=== PATIENT | female | born 1985 | race Hispanic/Latino ===

== ENCOUNTER 2020-09-16 10:09 | Outpatient (CLI) | payer OTHER ==
[2020-09-17 12:00] LABS: SARS-CoV-2 MS2 Positive; SARS-CoV-2 N Gene Negative; SARS-CoV-2 S Gene Negative; SARS-CoV-2 by NAA Not Detected (NotDetected); SARS-CoV-2 orf1ab Negative
== END 2020-09-16 10:10 | disposition home or self-care (01) ==
LOC: LABBT 10:09
PROVIDERS: ATTEND Obstetrics & Gynecology
DX: Z20.828 Contact with and (suspected) exposure to other viral communicable diseases (principal)
CPT/HCPCS: 87635; U0003

== ENCOUNTER 2020-09-19 05:30 | Inpatient (IN) | payer OTHER ==
[~2020-09-19 05:30] MED LIST: Acetaminophen 500 MG TAB PO PRN; Butorphanol Tartrate 1 MG/ML VIAL SLOW IVP PRN; Carboprost 250 MCG/ML AMP IM PRN; Diphenoxylate HCl/Atropine Tablet PO PRN; HYDROcodone/Acetaminophen 5/325 mg Tablet PO PRN; Ibuprofen 800 MG TAB PO PRN; Lidocaine 1% (PF) 30 ML VIAL SC PRN; Methylergonovine 0.2 MG/ML VIAL IM PRN; Misoprostol 200 MCG TAB PR PRN; Ondansetron PF 4 MG/2 ML Vial IVP PRN; Promethazine HCl 25 MG/ML VIAL IM PRN; hydrALAZINE 20 MG/ML VIAL SLOW IVP PRN
[2020-09-22] MEDS: Lactated Ringer's 1,000 ML IV SCH ×2 (07:22→11:08)
[2020-09-22 07:45] VITALS: BMI 28.5
[2020-09-22] MEDS ORDERED: FLU VACC QS2020-21(6MOS UP)/PF 60 MCG/0.5 ML SYRINGE IM ONE (08:00)
[2020-09-22 08:05] LABS: Hemoglobin 13.4 g/dL (12.0-16.0); Mean Corpuscular HGB CONC 35.3 g/dL (32.0-36.0); Mean Corpuscular Volume 87.9 fL (78.0-98.0); Mean Platelet Volume 9.9 fL (7.4-10.4); Platelet Count 148 thou/uL (130-400); RBC Distribution Width 13.2 % (11.5-14.5); Red Blood Cell (RBC) Count 4.33 mill/uL (4.20-5.40); White Blood Cell (WBC) Count 9.2 thou/uL (4.8-10.8)
[2020-09-22 09:20] LABS: HBSAg Index 0.36 S/CO (0-0.99); Hep B Surf Ag Non-Reactive S/CO (NonReactive)
[2020-09-22] MEDS: NS w/ Oxytocin 10 units 500 ML IV SCH (09:37)
[2020-09-22 10:55] LABS: Syphilis Antibody Nonreactive (Nonreactive); Syphilis Antibody Index 0.04 S/CO (<1.00 Non-Reactive)
[2020-09-22] MEDS ORDERED: NS / Oxytocin 40 units/1000ml 1,000 ML ONE (13:12)
[2020-09-22] MEDS ORDERED: Lidocaine 1% (PF) 30 ML VIAL ONE (13:12)
[2020-09-22] MEDS: NS / Oxytocin 40 units/1000ml 1,000 ML IV PRN ×2 (16:12→17:29)
--- NOTE | 2020-09-22 16:27 | PDOC.OPDEL ---
OB Operative/Delivery Note Delivery Dr/Surgeon: Oanh Pre-Delivery Diagnosis: medically indicated induction Procedure/Post Delivery Dx: spontaneous vaginal delivery Weeks gestation: 41 Anesthesia: local - Findings A Sex: male - Additional Findings/Plan Placenta delivered: spontaneous Repaired Obstetrical Laceration: 1st degree Estimated blood loss: 100ml qbl Post delivery plan: routine recovery
[2020-09-22] MEDS ORDERED: Bisacodyl 10 MG SUPP PR PRN (18:22)
[2020-09-22] MEDS ORDERED: Preparation H Ointment 28 GM TUBE PR PRN (18:22)
[2020-09-22] MEDS ORDERED: traMADol HCl 50 MG TAB PO PRN (18:22)
[2020-09-22] MEDS ORDERED: hydrALAZINE 20 MG/ML VIAL SLOW IVP PRN (18:22)
[2020-09-22] MEDS ORDERED: Adacel (T-DAP) 0.5 ML SYRINGE IM ONE (18:22)
[2020-09-22] MEDS ORDERED: Benzocaine-Menthol 82.5 ML CAN TOP PRN (18:22)
[2020-09-22] MEDS ORDERED: Milk Of Magnesia 30 ML UDCUP PO PRN (18:22)
[2020-09-22] MEDS ORDERED: NS / Oxytocin 40 units/1000ml 1,000 ML IV SCH (18:22)
[2020-09-22] MEDS ORDERED: Lanolin Ointment 7 GM TUBE TOP PRN (18:22)
[2020-09-22] MEDS: Ferrous Sulfate 325 MG TAB PO SCH (19:09)
[2020-09-22] MEDS: Docusate Calcium (SURFAK) 240 MG CAP PO SCH (20:45)
[2020-09-22] MEDS: Ibuprofen 800 MG TAB PO SCH (20:46)
[2020-09-23] MEDS: Ibuprofen 800 MG TAB PO SCH ×2 (05:28→14:06)
[2020-09-23] MEDS: Ferrous Sulfate 325 MG TAB PO SCH ×2 (07:38→16:57)
[2020-09-23] MEDS: Lactated Ringer's 1,000 ML IV SCH ×4 (07:44→08:26)
[2020-09-23] MEDS: NS w/ Oxytocin 10 units 500 ML IV SCH ×2 (07:45→08:25)
[2020-09-23] MEDS: Docusate Calcium (SURFAK) 240 MG CAP PO SCH (08:08)
[2020-09-23] MEDS ORDERED: Prenatal Vitamin 1 TAB PO SCH (09:00)
[2020-09-23 11:30] VITALS: BP 115/70; TEMP 98
== END 2020-09-23 18:00 | disposition home or self-care (01) | DRG 807 ==
LOC: L&D-LIB 09-22 05:30 → 3SE 09-22 18:58
PROVIDERS: ADMIT Obstetrics & Gynecology; ATTEND Obstetrics & Gynecology
PROC: 10E0XZZ Delivery of Products of Conception, External Approach (ICD-10-PCS; principal; 2020-09-22)
PROC: 10907ZC Drainage of Amniotic Fluid, Therapeutic from Products of Conception, Via Natural or Artificial Opening (ICD-10-PCS; 2020-09-22)
PROC: 3E033VJ Introduction of Other Hormone into Peripheral Vein, Percutaneous Approach (ICD-10-PCS; 2020-09-22)
PROC: 0HQ9XZZ Repair Perineum Skin, External Approach (ICD-10-PCS; 2020-09-22)
DX: O48.0 Post-term pregnancy (principal); Z37.0 Single live birth; O70.0 First degree perineal laceration during delivery; Z3A.41 41 weeks gestation of pregnancy; Z20.828 Contact with and (suspected) exposure to other viral communicable diseases
CPT/HCPCS: 36415; 85027; 86780; 86850; 86900; 86901; 87340; J2001; J2590

== ENCOUNTER 2020-09-19 11:25 | Outpatient (CLI) | payer OTHER ==
[2020-09-20 11:07] LABS: SARS-CoV-2 MS2 Positive; SARS-CoV-2 N Gene Negative; SARS-CoV-2 S Gene Negative; SARS-CoV-2 by NAA Not Detected (NotDetected); SARS-CoV-2 orf1ab Negative
== END 2020-09-19 11:26 | disposition home or self-care (01) ==
LOC: LABBT 11:25
PROVIDERS: ATTEND Obstetrics & Gynecology
DX: Z20.828 Contact with and (suspected) exposure to other viral communicable diseases (principal)
CPT/HCPCS: 87635; U0003

== ENCOUNTER 2022-08-10 13:52 | Inpatient (IN) | payer OTHER, SELFPAY ==
[~2022-08-10 13:52] MED LIST changes: -Acetaminophen 500 MG TAB PO PRN; -Butorphanol Tartrate 1 MG/ML VIAL SLOW IVP PRN; -Carboprost 250 MCG/ML AMP IM PRN; -Diphenoxylate HCl/Atropine Tablet PO PRN; -HYDROcodone/Acetaminophen 5/325 mg Tablet PO PRN; -Ibuprofen 800 MG TAB PO PRN; +Iopamidol-370 76% 500 ML 1 ML ONE; -Lidocaine 1% (PF) 30 ML VIAL SC PRN; -Methylergonovine 0.2 MG/ML VIAL IM PRN; -Misoprostol 200 MCG TAB PR PRN; -Ondansetron PF 4 MG/2 ML Vial IVP PRN; -Promethazine HCl 25 MG/ML VIAL IM PRN; -hydrALAZINE 20 MG/ML VIAL SLOW IVP PRN
[2022-08-10 14:41] LABS: #Lymphocytes 1.4 thou/uL (1.20-3.40); #Monocytes 0.4 thou/uL (0.11-0.59); #Neutrophils 8.1 thou/uL (1.40-6.50); %Eosinophils 0.2 % (0.0-10.0); %Lymphocytes 13.6 % (21.0-51.0); %Neutrophils 82.1 % (42.0-75.0); Hemoglobin 11.8 g/dL (12.0-16.0); Mean Corpuscular HGB CONC 33.1 g/dL (32.0-36.0); Mean Corpuscular Hemoglobin 27.2 pg (27.0-31.0); Mean Corpuscular Volume 82.2 fL (78.0-98.0); Mean Platelet Volume 9.8 fL (7.4-10.4); Platelet Count 214 thou/uL (130-400); RBC Distribution Width 13.6 % (11.5-14.5); Red Blood Cell (RBC) Count 4.33 mill/uL (4.20-5.40); White Blood Cell (WBC) Count 9.9 thou/uL (4.8-10.8)
[2022-08-10 15:05] LABS: ALT (SGPT) 48 U/L (8-55); AST (SGOT) 73 U/L (5-34); Albumin 4.5 g/dL (3.5-5.0); Alkaline Phosphatase 93 U/L (40-110); Anion Gap 15 mmol/L (10-20); BUN (Urea Nitrogen) 14 mg/dL (7.0-18.7); Bilirubin, Total 0.3 mg/dL (0.2-1.2); Calc. Creatinine Clearance 0 mL/min (70-130); Calcium 9.4 mg/dL (7.8-10.44); Carbon Dioxide 22 mmol/L (22-29); Chloride 108 mmol/L (98-107); Estimated GFR 92; Globulin 3.2 g/dL (2.4-3.5); Glucose 108 mg/dL (70-105); Protein, Total 7.7 g/dL (6.0-8.3); Sodium 141 mmol/L (136-145)
[2022-08-10 15:21] LABS: CKMB 1.1 ng/mL (0-6.6)
[2022-08-10 15:38] LABS: BHCG - Serum Negative (NEGATIVE)
[2022-08-10 15:39] LABS: Pregs Control Background? CLEAR/WHITE (CLR/WHITE); Pregs Control Bar Appear? YES (CONTROL BAR)
[2022-08-10 15:46] LABS: Magnesium 2.4 mg/dL (1.6-2.6)
[2022-08-10 16:51] LABS: Bilirubin Negative (Negative); Blood, Urine Negative (Negative); Clarity Clear (Clear); Glucose, Urine (Dipstick) Normal (Negative); Ketone, Urine Trace mg/dL (Negative); Leukocyte Negative Leu/uL (Negative); Nitrite Negative (Negative); Protein, Urine (Dipstick) Negative (Neg-Trace); Specific Gravity, Urine 1.014 (1.002-1.036); Urobilinogen Normal mg/dL (Less than 2)
[2022-08-10] MEDS ORDERED: Aspirin Chewable 81 MG TAB ONE (17:35)
[2022-08-10 17:57] LABS: Troponin I 0.176 ng/mL (< 0.028)
[2022-08-10] MEDS ORDERED: Ondansetron PF 4 MG/2 ML Vial IVP PRN (20:23)
[2022-08-10] MEDS ORDERED: Acetaminophen 650 MG Suppository PR PRN (20:23)
[2022-08-10] MEDS ORDERED: Acetaminophen 325 MG TAB PO PRN (20:23)
[2022-08-10] MEDS ORDERED: Ondansetron ODT 4 MG TAB PO PRN (20:23)
[2022-08-10 20:50] LABS: Troponin I 0.192 ng/mL (< 0.028)
[2022-08-10 22:27] VITALS: BMI 22.8
[2022-08-10 22:37] LABS: SARS-CoV-2 NAA Rapid Test Not Detected (NotDetected)
[2022-08-10] MEDS: Enoxaparin Sodium 80 MG/0.8 ML SYRINGE SC SCH (22:51)
[2022-08-10 23:51] LABS: Amphetamine Not Detected (NotDetected); Barbiturates Screen Not Detected (NotDetected); Benzodiazepine Screen Not Detected (NotDetected); Cocaine Metabolite Screen Not Detected (NotDetected); Methadone Not Detected (NotDetected); Methamphetamine Not Detected (NotDetected); Opiate Screen Not Detected (NotDetected); Oxycodone Screen Not Detected (NotDetected); Phencyclidine (PCP) Not Detected (NotDetected); THC/Cannabinoid Screen Not Detected (NotDetected); Tricyclic Screen Not Detected (NotDetected)
[2022-08-11 04:04] VITALS: TEMP 98.1
[2022-08-11 04:38] LABS: #Eosinphils 0.1 thou/uL (0.0-0.7); #Lymphocytes 2.2 thou/uL (1.20-3.40); #Monocytes 0.5 thou/uL (0.11-0.59); %Basophils 0.4 % (0.0-1.0); %Eosinophils 0.7 % (0.0-10.0); %Lymphocytes 31.9 % (21.0-51.0); %Monocytes 7.4 % (0.0-10.0); %Neutrophils 59.5 % (42.0-75.0); Hemoglobin 11.1 g/dL (12.0-16.0); Mean Corpuscular HGB CONC 32.7 g/dL (32.0-36.0); Mean Corpuscular Hemoglobin 26.8 pg (27.0-31.0); Mean Corpuscular Volume 81.9 fL (78.0-98.0); Mean Platelet Volume 9.9 fL (7.4-10.4); Platelet Count 184 thou/uL (130-400); RBC Distribution Width 13.6 % (11.5-14.5); Red Blood Cell (RBC) Count 4.16 mill/uL (4.20-5.40); White Blood Cell (WBC) Count 6.7 thou/uL (4.8-10.8)
[2022-08-11 04:43] LABS: Hemoglobin A1c 4.8 % (4.0-6.0)
[2022-08-11 05:02] LABS: Anion Gap 13 mmol/L (10-20); BUN (Urea Nitrogen) 11 mg/dL (7.0-18.7); Calc. Creatinine Clearance 108 mL/min (70-130); Calcium 8.7 mg/dL (7.8-10.44); Carbon Dioxide 23 mmol/L (22-29); Chloride 106 mmol/L (98-107); Cholesterol 165 mg/dl (< 200 Desired); Estimated GFR 107; Glucose 91 mg/dL (70-105); HDL Cholesterol 55 mg/dL (>60 Neg Risk); LDL Cholesterol, Calculated 91 mg/dL; Potassium 3.7 mmol/L (3.5-5.1); Sodium 138 mmol/L (136-145); Triglycerides 96 mg/dL (Less than 150)
[2022-08-11] MEDS ORDERED: Enoxaparin Sodium 40 MG/0.4 ML SYRINGE SC SCH (09:00)
[2022-08-11] MEDS: Enoxaparin Sodium 80 MG/0.8 ML SYRINGE SC SCH (09:33)
[2022-08-11 13:52] VITALS: BP 120/58
== END 2022-08-11 15:10 | disposition home or self-care (01) | DRG 309 ==
LOC: ERS 13:52 → ERHOLD 19:37 → 2NO 21:47
PROVIDERS: ADMIT Family Medicine; ATTEND Family Medicine
DX: R00.0 Tachycardia, unspecified (principal); I24.8 Other forms of acute ischemic heart disease; D64.9 Anemia, unspecified; Z90.09 Acquired absence of other part of head and neck; Z79.899 Other long term (current) drug therapy
CPT/HCPCS: 36415; 71045; 71275; 80048; 80053; 80061; 80306; 81003; 82553; 83036; 83735; 84484; 84703; 85025; 93005; J1650; Q9967; U0002